=== PATIENT | male | born 2000 ===

== ENCOUNTER 2018-08-23 21:37 | Emergency (ER) | payer SELFPAY ==
--- NOTE | 2018-08-23 21:41 | ED PDOC ---
Arrival/HPI - General Historian: EMS EM Caveat: Acuity of Condition (intoxicated ) - History of Present Illness Narrative History of Present Illness (Text): 08/23/18 21:40 18 year old male, whose past medical history includes seizure disorder, presents to the emergency department via EMS found unresponsive by family member in garage. Patient was drinking in the garage. Patient is currently awake, but is unable to answer any questions appropriately. HPI and ROS limited due to patient's current state. Past Medical History - Provider Review Nursing Documentation Reviewed: Yes Family/Social History - Physician Review Nursing Documentation Reviewed: Yes Family/Social History: No Known Family HX Allergies/Home Meds Allergies/Adverse Reactions: Allergies Unobtainable Allergy (Verified 08/23/18 21:47) Home Medications: Home Meds Medication Instructions Recorded Confirmed RX: Unobtainable 08/23/18 08/23/18 Review of Systems - Physician Review All systems were reviewed & negative as marked: Yes - Review of Systems Systems not reviewed;Unavailable: Acuity of Condition (Intoxicated) Physical Exam Vital Signs Reviewed: Yes Temperature: Afebrile Blood Pressure: Normal Pulse: Tachycardic Respiratory Rate: Normal Appearance: Positive for: Well-Appearing, Non-Toxic, Comfortable Pain Distress: None Mental Status: Positive for: other (awake, but does not answer questions. Speaking nonsense. Unable to determine if oriented) - Systems Exam Head: Present: Atraumatic, Normocephalic Pupils: Present: Other (Pupils 2mm bilaterally ) Extroacular Muscles: Present: EOMI Conjunctiva: Present: Normal Mouth: Present: Moist Mucous Membranes. No: Other (No tongue laceration) Neck: Present: Normal Range of Motion Respiratory/Chest: Present: Clear to Auscultation, Good Air Exchange. No: Respiratory Distress, Accessory Muscle Use Cardiovascular: Present: Regular Rate and Rhythm, Normal S1, S2. No: Murmurs Abdomen: No: Tenderness, Distention, Peritoneal Signs Genitourinary Male: Present: Other (urinary incontinence) Back: Present: Normal Inspection Upper Extremity: Present: Normal Inspection, Normal ROM. No: Cyanosis, Edema Lower Extremity: Present: Normal Inspection, Normal ROM. No: Edema Neurological: Present: GCS=15, CN II-XII Intact Skin: Present: Warm, Dry, Normal Color. No: Rashes Psychiatric: Present: Alert (awake, but does not answer questions. Speaking nonsense. Unable to determine if oriented), Normal Insight, Normal Concentration Medical Decision Making ED Course and Treatment: 08/23/18 21:40 Impression: 18 year old male presents unresponsive when found by family in the garage after drinking. Plan: -- Labs -- Dextrose, IV Fluids -- Urinalysis -- Sobriety -- Reassess and disposition Progress Notes: 08/23/18 20:45 EKG shows Sinus Tachycardia at 123 BPM with normal axis, normal intervals, No ST elevations, No PVCs. Interpreted by me. Patient had no seizure activity throughout ED course. 08/24/18 04:09 Patient is awake and oriented x3. Patient is speaking in full sentences and denies any complaints at present time. Patient is ambulating with a steady gait and is stable for discharge. - Lab Interpretations I have reviewed the lab results: Yes - EKG Interpretation Interpreted by ED Physician: Yes Type: 12 lead EKG - Scribe Statement The provider has reviewed the documentation as recorded by the Yesenia Fritz Provider Scribe Attestation: All medical record entries made by the Pedroibstaci were at my direction and personally dictated by me. I have reviewed the chart and agree that the record accurately reflects my personal performance of the history, physical exam, medical decision making, and the department course for this patient. I have also personally directed, reviewed, and agree with the discharge instructions and disposition. Disposition/Present on Arrival - Present on Arrival Any Indicators Present on Arrival: No - Disposition Have Diagnosis and Disposition been Completed?: Yes Diagnosis: Alcohol intoxication, Marijuana intoxication Disposition: HOME/ ROUTINE Disposition Time: 04:10 Condition: STABLE Discharge Instructions (ExitCare): Alcohol Abuse and Alcoholism (DC), Marijuana Use and Addiction (DC) Additional Instructions: RAJI MADDOX, thank you for letting us take care of you today. Your provider was Arianna Gallagher MD and you were treated for ETOH. The emergency medical care you received today was directed at your acute symptoms. If you were prescribed any medication, please fill it and take as directed. It may take several days for your symptoms to resolve. Return to the Emergency Department if your symptoms worsen, do not improve, or if you have any other problems. Please contact your doctor or call one of the physicians/clinics you have been referred to that are listed on the Patient Visit Information form that is included in your discharge packet. Bring any paperwork you were given at discharge with you along with any medications you are taking to your follow up visit. Our treatment cannot replace ongoing medical care by a primary care provider outside of the emergency department. Thank you for allowing the [facility] team to be part of your care today. If you had an X-Ray or CT scan: A Radiologist will review the ED reading if any change in treatment is needed we will contact you. If you had a blood, urine, or wound culture: It will take several days for the results, if any change in treatment is needed we will contact you. If you had an STI test: It will take 48 hours for the results. Please call after 1 week if you have not heard back. Forms: Mavin ([place]ayan)
[2018-08-23 21:48] VITALS: BMI 16.9
[2018-08-23 21:53] VITALS: TEMP 98
[2018-08-23] MEDS ORDERED: Dextrose 50% SYRINGE Inj (50 ml) IVP STA (21:53)
[2018-08-23] MEDS ORDERED: Dextrose 50% SYRINGE Inj (50 ml) ONE (21:54)
[2018-08-23] MEDS ORDERED: Sodium Chloride 0.9% 1,000 ML IV STA (21:56)
[2018-08-23 22:15] LABS: ALB/GLOB RATIO 1.5 (1.1-1.8); ALBUMIN 5.3 g/dL (3.0-4.8); ALT/SGPT 25 U/L (7-56); AST/SGOT 34 U/L (17-59); BLOOD UREA NITROGEN 11 mg/dL (7-21); CALCIUM 9.9 mg/dL (8.4-10.5); GFR NON-AFRICAN AMERICAN > 60
[2018-08-23 22:16] LABS: BASO # 0.06 K/mm3 (0.0-2.0); BASO % 0.5 % (0.0-3.0); EOS # 0.2 (0.0-0.7); EOS % 1.6 % (1.5-5.0); GRAN # 5.86 (1.4-6.5); GRAN % 45.4 % (50.0-68.0); HEMOGLOBIN 15.1 g/dL (14.0-18.0); LYMPH # 5.5 (1.2-3.4); LYMPH % 42.7 % (22.0-35.0); MEAN CELL VOLUME 85.4 fl (80.0-105.0); MEAN CORPUSCULAR HEMOGLOBIN 30.2 pg (25.0-35.0); MEAN CORPUSCULAR HGB CONC 35.4 g/dl (31.0-37.0); MEAN PLATELET VOLUME 9.6 fl (7.0-11.0); MONO # 1.3 (0.1-0.6); MONO % 9.8 % (1.0-6.0); RED CELL DISTRIBUTION WIDTH 13.1 % (11.5-14.5); WHITE BLOOD COUNT 12.9 10^3/uL (4.5-11.0)
[2018-08-23] MEDS ORDERED: Potassium Chloride 20 mEq ER Tab PO STA (22:17)
[2018-08-23 22:46] LABS: URINE BILIRUBIN NEGATIVE (NEGATIVE); URINE BLOOD NEGATIVE (NEGATIVE); URINE GLUCOSE (UA) 500 mg/dL (NEGATIVE); URINE LEUKOCYTE ESTERASE NEGATIVE Leu/uL (NEGATIVE); URINE PROTEIN NEGATIVE mg/dL (<30 mg/dL); URINE UROBILINOGEN 0.2 E.U./dL (<1 E.U./dL)
[2018-08-23 22:47] LABS: URINE APPEARANCE CLEAR (CLEAR); URINE COLOR YELLOW (YELLOW)
[2018-08-23 22:55] LABS: BARBITURATES, UR NEGATIVE (NEGATIVE); BENZODIAZEPINES, UR NEGATIVE (NEGATIVE); OPIATES, UR NEGATIVE (NEGATIVE); PHENCYCLIDINE, UR NEGATIVE (NEGATIVE)
[2018-08-24 01:48] VITALS: RESP 18
[2018-08-24 04:13] VITALS: BP 118/72; PULSE 77; O2SAT 98
--- NOTE | 2018-08-24 09:13 | CARD ---
APPROVED REPORT Date of service: 08/23/2018 EKG Measurement Heart [id number] <Conclusion> Sinus tachycardia ST elevations 2,3,F, possible artifactual LVH by voltage Suggest clinical correlation.
== END 2018-08-24 04:13 | disposition home or self-care (01) ==
LOC: ED 21:37
DX: F10.129 Alcohol abuse with intoxication, unspecified (principal); F12.929 Cannabis use, unspecified with intoxication, unspecified; Y90.5 Blood alcohol level of 100-119 mg/100 ml
CPT/HCPCS: 80053; 81003; 82948; 85025; 93005; 96361; 96374; 99284; G0480; J2405; J7030